=== PATIENT | female | born 1950 | race Caucasian/White ===

== ENCOUNTER → 2019-11-27 12:47 | Outpatient (BNVA) | payer MEDICARE, BC, SELFPAY | PROVIDERS: Family Provider Family Medicine; PCP Family Medicine; Visit Provider Specialist | DX: G43.909 Migraine, unspecified, not intractable, without status migrainosus (principal) | CPT/HCPCS: 96374; 96375 ==

== ENCOUNTER → 2020-03-18 07:44 | Outpatient (BNVA) | payer MEDICARE, BC, SELFPAY | PROVIDERS: Family Provider Family Medicine; PCP Family Medicine; Visit Provider Specialist | DX: G43.009 Migraine without aura, not intractable, without status migrainosus (principal); F17.210 Nicotine dependence, cigarettes, uncomplicated | CPT/HCPCS: 99213 ==

== ENCOUNTER 2020-05-03 10:58 | Emergency (ER) | payer MEDICARE, BC, SELFPAY ==
[2020-05-03 11:14] VITALS: BP 143/84; PULSE 66; RESP 16; TEMP 36.6; O2SAT 98; BMI 18.1
--- NOTE | 2020-05-03 11:29 | W.ED.HA ---
HPI - Headache General: Chief Complaint: Headache Stated Complaint: H/A Time Seen by Provider: 05/03/20 11:21 Source: patient Mode of arrival: ambulatory Limitations: no limitations History of Present Illness: HPI Narrative: Patient is a 70-year-old female who presents to ED today with complaints of a migraine headache. Patient states she chronically suffers from migraine headaches. She has a good establishment with Dr. Paul treatment of these. Patient tells me over the past 4 days she has suffered from a migraine headache that does not seem to be responsive to her medications of Topamax and Effexor. Patient tells me her headache today feels identical to previous migraines. MD elicited complaint: headache and migraine Onset (ago): day(s) Onset description: gradually Severity: severe Exacerbating factors: light and noise Relieving factors: nothing Associated symptoms: Reports no associated symptoms and nausea; Deny chest pain, confusion, fever(s), rash or vomiting Review of Systems Const: Denies: fever(s), chills or body aches Eyes: Reports: photophobia; Denies: change in vision, blurry vision, floaters or seeing flashes Card: Denies: chest pain Resp: Denies: dyspnea GI: Reports: nausea; Denies: vomiting Musc: Denies: neck pain or back pain Skin/Breast: Denies: rash Neuro: Reports: headache(s); Denies: numbness in extremities, weakness in extremities, sensory changes, dizziness, vertigo, confusion or Slurred speech present [facility] ED PFSH: Family History Other CAD (coronary artery disease) Cancer Hypertension Denies family history of Diabetes Stroke Social History Smoking and tobacco status: current every day smoker cigarettes Packs smoked per day: 0.75 Alcohol intake: never History of recent travel: Yes ([place], [place]) Physical Exam Const: COMMON NORMALS: no acute distress, average body habitus, patient oriented x3, no limitations, healthy appearing, alert and well nourished ORIENTATION/CONSCIOUSNESS: Yes oriented to person and Yes oriented to time OTHER: pt lying in quiet dark room HENMT: COMMON NORMALS: normocephalic and atraumatic HEAD & SCALP: normal to inspection, normocephalic and atraumatic Neck/C-Spine: COMMON NORMALS: full ROM and no meningeal signs Resp: COMMON NORMALS: normal respiratory effort Neuro: ZU[place]A COMA SCALE: document GCS findings [place] coma scale eye opening: Spontaneous [place] coma scale verbal response: Orientated [place] coma scale motor response: Obey commands [place] coma scale total score: 15 COMMON NORMALS: patient oriented x3 SENSORIUM/ORIENTATION: Yes alert, Yes oriented to person and Yes oriented to time MENINGEAL SIGNS: Yes no meningeal signs Course Vital Signs: Vital signs: Vital Signs Temperature 97.8 F 05/03/20 11:14 Pulse Rate 61 05/03/20 12:01 Respiratory Rate 14 05/03/20 12:01 Blood Pressure 159/84 05/03/20 12:01 Pulse Oximetry 94 05/03/20 12:01 MDM - Headache MDM Narrative: Medical decision making narrative: pt down from a 10/10 to a 3/10; she is resting comfortably in NAD and states she feels comfortable going home Discharge Plan Discharge Patient Disposition: Home Clinical Impression: Common migraine without intractability Condition: Stable Prescriptions: No Action raloxifene 60 mg tablet 60 mg PO DAILY RF: 0 bisoprolol-hydrochlorothiazide 5-6.25 mg tablet 1 tab PO DAILY RF: 0 aspirin [Aspir-81] 81 mg tablet,delayed release (DR/EC) 81 mg PO DAILY RF: 0 gabapentin 600 mg tablet 600 mg PO TID RF: 0 ropinirole 0.5 mg tablet 0.5 mg PO DAILY RF: 0 venlafaxine [Effexor XR] 150 mg capsule,extended release 24hr 150 mg PO DAILY Qty: 90 RF: 3 venlafaxine [Effexor XR] 37.5 mg capsule,extended release 24hr 37.5 mg PO DAILY Qty: 90 RF: 3 topiramate 50 mg tablet 50 mg PO DAILY Qty: 90 RF: 3 Discharge Orders: Discharge Order (Routine); Ordered 05/03/20 Ordered By: Sherrill Solares Referrals: Lalo Saenz MD [Primary Care Provider] - Patient Instructions: Headache - Migraine (Adult), Migraine Headache (ED) Activity Restrictions/Additional Instructions: Please follow up with Dr. Paul as scheduled/needed for treatment of your migraine headaches. Coding Level of Care Code ED Technical Operator for Chg Fwd Exam Detailed
[2020-05-03] MEDS: ondansetron 2 mg/ML SDV 2 mL 4 MG IVP (11:54)
[2020-05-03] MEDS: sodium chloride 0.9% 1,000 ML 999 ML IV (11:54)
[2020-05-03] MEDS: diphenhydrAMINE 50 mg/mL SDV 1mL 25 MG IVP (11:54)
[2020-05-03] MEDS: valproic acid inj 500 MG in sodium chloride 0.9% 50 ML 55 MG IV (11:55)
[2020-05-03 12:01] VITALS: BP 159/84; PULSE 61; RESP 14; O2SAT 94
[2020-05-03] MEDS: dihydroergotamine 1 mg/mL Inj IVP (13:32)
[2020-05-03 14:05] VITALS: BP 167/78; PULSE 63; RESP 12; O2SAT 97
== END 2020-05-03 14:06 | disposition home or self-care (01) ==
PROVIDERS: Emergency Provider Physician Assistant; PCP Family Medicine
DX: G43.009 Migraine without aura, not intractable, without status migrainosus (principal); Z79.82 Long term (current) use of aspirin; F17.210 Nicotine dependence, cigarettes, uncomplicated
CPT/HCPCS: 12345; 96360; 96361; 96365; 96366; 96375; 99283; J1110; J1200; J2405; J7030

== ENCOUNTER → 2020-05-09 08:22 | Outpatient (BNVA) | payer MEDICARE, BC, SELFPAY | PROVIDERS: PCP Family Medicine; Visit Provider Nurse Practitioner | DX: G43.009 Migraine without aura, not intractable, without status migrainosus (principal) | CPT/HCPCS: 96374; 96375; J1110; J1200; J2405 ==

== ENCOUNTER → 2021-03-04 08:00 | Outpatient (BNVA) | payer MEDICARE, BC, SELFPAY | PROVIDERS: PCP Family Medicine; Visit Provider Specialist | DX: G43.711 Chronic migraine without aura, intractable, with status migrainosus (principal); F17.210 Nicotine dependence, cigarettes, uncomplicated | CPT/HCPCS: 99214 ==

== ENCOUNTER → 2021-03-17 07:57 | Outpatient (BNVA) | payer MEDICARE, BC, SELFPAY | PROVIDERS: PCP Family Medicine; Visit Provider Specialist | DX: G43.711 Chronic migraine without aura, intractable, with status migrainosus (principal); F17.210 Nicotine dependence, cigarettes, uncomplicated | CPT/HCPCS: 96372; 96374; 96375; 96376; 99214; J1110; J1200; J1885; J2405 ==

== ENCOUNTER → 2021-04-29 10:43 | Outpatient (BNVA) | payer MEDICARE, BC, SELFPAY | PROVIDERS: PCP Family Medicine; Visit Provider Specialist | DX: G43.711 Chronic migraine without aura, intractable, with status migrainosus (principal); F17.210 Nicotine dependence, cigarettes, uncomplicated | CPT/HCPCS: 96374; 96375; 96376; 99214; J1110; J1200; J2405 ==

== ENCOUNTER → 2021-06-04 08:16 | Outpatient (BNVA) | payer MEDICARE, BC, SELFPAY | PROVIDERS: PCP Family Medicine; Visit Provider Specialist | DX: G43.711 Chronic migraine without aura, intractable, with status migrainosus (principal); F17.210 Nicotine dependence, cigarettes, uncomplicated | CPT/HCPCS: 99213; 99214 ==

== ENCOUNTER → 2021-07-07 12:45 | Outpatient (BNVA) | payer MEDICARE, BC, SELFPAY | PROVIDERS: PCP Family Medicine; Referring Provider Specialist; Visit Provider Specialist | DX: G43.711 Chronic migraine without aura, intractable, with status migrainosus (principal) | CPT/HCPCS: 96372; 96374; 96375; 96376; 99214 ==

== ENCOUNTER → 2021-08-07 12:50 | Outpatient (BNVA) | payer MEDICARE, BC, SELFPAY | PROVIDERS: PCP Family Medicine; Visit Provider Specialist | DX: G43.711 Chronic migraine without aura, intractable, with status migrainosus (principal); F32.A Depression, unspecified | CPT/HCPCS: 64615; 99213; 99214; J0585 ==

== ENCOUNTER → 2021-11-20 10:17 | Outpatient (BNVA) | payer MEDICARE, BC, SELFPAY | PROVIDERS: PCP Family Medicine; Visit Provider Specialist | DX: G43.711 Chronic migraine without aura, intractable, with status migrainosus (principal); F17.210 Nicotine dependence, cigarettes, uncomplicated | CPT/HCPCS: 64615; 96372; J0585; J1885 ==

== ENCOUNTER → 2022-01-06 09:16 | Day surgery (SDC) | payer MEDICARE, BC, SELFPAY ==
[2022-01-06 09:25] VITALS: BP 126/77; PULSE 59; RESP 18; TEMP 36.2; O2SAT 96
[2022-01-06 09:30] VITALS: BMI 20.6
[2022-01-06] MEDS: ondansetron 2 mg/ML SDV 2 mL 4 MG IVP (10:16)
[2022-01-06] MEDS: diphenhydrAMINE 50 mg/mL SDV 1mL 25 MG IVP (10:16)
[2022-01-06] MEDS: dihydroergotamine 1 mg/mL Inj IVP ×6 (10:40→12:30)
[2022-01-06] MEDS: valproic acid inj 500 MG in sodium chloride 0.9% 50 ML 55 MG IV (13:04)
[2022-01-06 14:08] VITALS: BP 126/76; PULSE 62; RESP 18; TEMP 36.2; O2SAT 95
== END ==
PROVIDERS: PCP Family Medicine; Visit Provider Specialist
DX: G43.711 Chronic migraine without aura, intractable, with status migrainosus (principal)
CPT/HCPCS: 96365; 96374; 96375; J1110; J1200; J2405

== ENCOUNTER 2022-02-09 12:34 | Emergency (ER) | payer MEDICARE, BC, SELFPAY ==
[2022-02-09 12:39] VITALS: BP 143/77; PULSE 66; RESP 18; TEMP 36.6; O2SAT 95; BMI 20.6
[2022-02-09 12:54] VITALS: BP 168/88; PULSE 54; RESP 14; O2SAT 94
--- NOTE | 2022-02-09 12:54 | W.ED.HA ---
HPI - Headache General: Chief Complaint: Headache Stated Complaint: Has a headache, Dr. Paul sent over Time Seen by Provider: 02/09/22 12:47 Source: patient Mode of arrival: ambulatory Limitations: no limitations History of Present Illness: 71-year-old female presents emergency room complaining of a frontal headache for the last couple of days. She taken to ibuprofen for the headache. She states it started several days ago after she had a CT and a stress test. She not had any vomiting no vision changes no weakness in the arms or legs. MD elicited complaint: headache Pertinent past history: migraines Onset (ago): hour(s) Onset description: gradually Location: frontal Quality & Timing: throbbing Exacerbating factors: none Context: occurred at rest Associated symptoms: Reports nausea; Deny chest pain, confusion, cough, diaphoresis, eye pain, eye redness, fever(s), lightheadedness, loss of vision, malaise, neck stiffness, numbness, paresthesias, photophobia, pre-syncope, rash, seizures, short of breath, sound sensitivity, syncope, vomiting or weakness Treatments prior to arrival: ibuprofen (2 tablets) Review of Systems Const: Denies: fever(s), chills, body aches, malaise or diaphoresis Eyes: Denies: change in vision or blurry vision ENMT: Denies: throat pain, ear or mastoid pain, nasal discharge or nasal congestion Card: Denies: chest pain, palpitations, lightheadedness, syncope or pre-syncope Resp: Denies: dyspnea, productive cough or non-productive cough GI: Reports: nausea; Denies: vomiting : Denies: flank pain, difficulty voiding, dysuria, urinary frequency or urinary urgency Musc: Denies: neck pain Skin/Breast: Denies: rash Neuro: Reports: headache(s); Denies: numbness in extremities, weakness in extremities, sensory changes, lack of coordination, difficulty walking or confusion PFSH ED PFSH: Medical History (Updated 02/12/22 @ 06:41 by Malvin Escobar DO) Depression Hypertension Migraines Family History Other CAD (coronary artery disease) Cancer Hypertension Denies family history of Diabetes Stroke Social History Smoking and tobacco status: current every day smoker cigarettes Packs smoked per day: 0.75 Alcohol intake: never History of recent travel: No Physical Exam Const: COMMON NORMALS: no acute distress GENERAL APPEARANCE: cooperative and comfortable ORIENTATION/CONSCIOUSNESS: Yes awake, Yes oriented to person, Yes oriented to place and Yes oriented to time HENMT: COMMON NORMALS: normocephalic, atraumatic and hearing grossly normal bilaterally HEAD & SCALP: normocephalic and atraumatic Eye: COMMON NORMALS: Equal, round and reactive pupils present, EOMs intact bilaterally, conjunctivae normal and no scleral icterus CONJUNCTIVA: Yes conjunctivae normal PUPIL: Yes Equal, round and reactive pupils present DIRECT OPHTHALMOSCOPY: No photophobia Neck/C-Spine: COMMON NORMALS: full ROM, no lymphadenopathy, supple and no JVD Resp: COMMON NORMALS: normal respiratory effort, No retractions, No use of accessory muscles and clear to auscultation bilaterally AUSCULTATION: clear to auscultation bilaterally Cardio: COMMON NORMALS: no JVD, regular rate, regular rhythm and No murmurs present (Cardio) RATE: regular rate RHYTHM: regular rhythm GI: COMMON NORMALS: Soft to palpation and No hepatosplenomegaly present AUSCULTATION: Yes normoactive bowel sounds PALPATION: Yes Soft to palpation, No Tenderness to palpation present (GI), No Guarding due to palpation present (GI) and Yes No hepatosplenomegaly present Extremity: COMMON NORMALS: normal to inspection, capillary refill normal, no clubbing, cyanosis or edema, no calf tenderness and no pedal edema Neuro: SENSORIUM/ORIENTATION: Yes oriented to person, Yes oriented to place and Yes oriented to time Skin: COMMON NORMALS: no rashes or lesions noted GENERAL SKIN EXAM: no rashes or lesions noted Course Vital Signs: Vital signs: Vital Signs Temperature 97.8 F 02/09/22 12:39 Pulse Rate 54 L 02/09/22 12:54 Respiratory Rate 14 02/09/22 12:54 Blood Pressure 138/88 02/09/22 15:11 Pulse Oximetry 95 02/09/22 15:11 MDM - Headache Medical Decision Making Improved after medications given. Patient has had chronic migraine for some time now. Discharge home follow-up with neurology. She has not seen neurology for some time. She usually sees Dr. Paul. He can return if has recurrent problems. Discharge Plan Discharge Patient Disposition: Home Clinical Impression: Chronic migraine without aura, intractable, with status migrainosus Condition: Stable Prescriptions: No Action raloxifene 60 mg tablet 60 mg PO DAILY 0RF gabapentin 600 mg tablet 600 mg PO TID 0RF alprazolam 0.5 mg tablet 0.5 mg PO TID PRN (Reason: Anxiety) 0RF citalopram 40 mg tablet 40 mg PO DAILY 0RF Myrbetriq 25 mg tablet extended release 24 hr 25 mg PO DAILY 0RF divalproex [Depakote ER] 500 mg tablet extended release 24 hr 500 mg PO DAILY Qty: 30 2RF aspirin 325 mg Tablet 325 mg PO DAILY 0RF tizanidine 4 mg tablet 4 mg PO DAILY PRN (Reason: Muscle Pain) 0RF venlafaxine 150 mg Capsule,Extended Release 24hr 150 mg PO DAILY 0RF metoprolol tartrate 50 mg tablet 50 mg PO BID 0RF albuterol sulfate 90 mcg/actuation HFA aerosol inhaler 2 puff INHALATION Q6H PRN (Reason: Pain) 0RF Trelegy Ellipta 100-62.5-25 mcg blister with device 1 ea INHALATION DAILY 0RF Discharge Orders: Discharge ED (Routine); Ordered 02/09/22 Ordered By: Malvin Escobar Referrals: Lalo Saenz MD [Primary Care Provider] - Discharge Diet: Usual diet Discharge Activity: Increase activity as tolerated Patient Instructions: Opioid Safety Activity Restrictions/Additional Instructions: Follow-up with your primary care doctor or neurologist as needed Coding Level of Care Code ED Director Digital Advertising for Christopher Martinez
[2022-02-09 13:11] VITALS: BP 160/77; O2SAT 93
[2022-02-09] MEDS: ketorolac 30 mg/mL INJ 15 MG IVP (13:34)
[2022-02-09] MEDS: promethazine 25 mg/mL SDV 1 mL IM (13:34)
[2022-02-09] MEDS: diphenhydrAMINE 50 mg/mL SDV 1mL 25 MG IVP (13:34)
[2022-02-09] MEDS: valproic acid inj 500 MG in sodium chloride 0.9% 50 ML 55 MG IV ×2 (13:35→14:59)
[2022-02-09 14:11] VITALS: BP 177/81; O2SAT 94
--- NOTE | 2022-02-09 15:03 | PC.NURSE ---
After first dose 500mg valproic acid. PT states head pain still 9/10. Second dose started 1504
[2022-02-09 15:11] VITALS: BP 138/88; O2SAT 95
== END 2022-02-09 16:20 | disposition home or self-care (01) ==
PROVIDERS: Emergency Provider Family Medicine; PCP Family Medicine
DX: G43.711 Chronic migraine without aura, intractable, with status migrainosus (principal); F17.210 Nicotine dependence, cigarettes, uncomplicated
CPT/HCPCS: 96365; 96372; 96375; 99284; J1200; J1885; J2550